=== PATIENT | female | born 1950 | race Two or more races ===

== ENCOUNTER 2017-01-25 16:07 | Emergency (ER) | payer MEDICARE, MEDICAID ==
--- NOTE | 2017-01-25 17:05 | ED Physician Chart ---
Chief Complaint/HPI - Patient Information Date Seen:: 01/25/17 Time Seen:: 16:40 Chief Complaint:: high bp History of Present Illness:: Patient reports that she checked her blood pressure today and it was elevated. The patient also states that she had a occipital headache earlier in the day that it is almost totally resolved without any additional treatment. She denies chest pain, shortness of breath, abdominal pain, visual disturbance, sweating, nausea or vomiting. The patient states that she regularly gets mild headaches, and this one may have been a little worse than usual but she was very "nervous" about her elevated blood pressure at the pharmacy. Patient states she has not missed any doses of her nifedipine which has not been changed in over 2 months by her private physician. Additionally the patient is an insulin-dependent diabetic but states that her blood sugars have been in the 110 region. The patient denies any other significant problems at this time, and has not had any type of prodrome leading up to the elevated blood pressure today. Allergies:: Allergies Allergy/AdvReac Type Severity Reaction Status Date / Time No Known Allergies Allergy Verified 01/25/17 16:10 Vitals:: Vital Signs - 8 hr 01/25/17 01/25/17 16:10 16:44 Temp 97.0 F 97.0 F HR 81 79 RR 16 16 BP 182/87 144/61 O2 Sat % 98 98 Historian:: Patient Review:: Nurse's Note Reviewed Review of Systems - Review of Systems Other: All other review of systems are negative except for those things mentioned in the history of present illness. 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 Patient also has a history of chronic renal insufficiency secondary to diabetes.), Other (chronic renal insufficiency) Family History: Heart disease Surgical History: Appendectomy, Cholecystectomy Psychiatricy History: None Medication: Reviewed Family Medical History - Family Member Mother Ethnicity: Living Status: Hx Family Cancer: No Hx Family Coronary Artery Disease: No Hx Family Congestive Heart Failure: No Hx Family Hypertension: Yes Hx Family Stroke: Yes Hx Family Diabetes: Yes Hx Family Seizures: No Hx Family Dementia: No Hx Family AIDS: No Hx Family HIV: No Hx Family COPD: Yes Hx Family Hepatitis: No Hx Family Psychiatric Problems: No Hx Family Tuberculosis: No Other Medical History: heart attack Physical Exam - Physical Examination Other:: Physical exam: In general the patient is a 66-year-old woman lying quietly on the gurney in no apparent distress. She is an obese female, alert and oriented and is able to carry on a conversation without any apparent abnormality. The patient is ambulatory without any focal deficits, able to sit up and lay down without any change in her mild headache symptoms, and has no readily apparent facial asymmetry. The cranial nerve motor functions are all symmetrical except that the pt has blindness in right eye with corneal opacity. EOMI. The neck is without audible bruit or stridor and has full range of motion. Skin exam is normal without icteric change. Cardiovascular exam is unremarkable. Chest exam is unremarkable with symmetrical breath sounds bilaterally. The patient has full range of motion of her back. The neurological exam is unremarkable for deficits in proprioception, cerebellar function, she has symmetrical 5 over 5 strength in all extremities with intact deep tendon reflexes symmetrically in all extremities. Assessment - Assessment General Assessment: Patient was serially examined with steady improvement of her blood pressure and the last reading was 144/61 with partial resolution of the patient's headache. ED Septic Shock - . Is Septic Shock (SBP<90, OR Lactate>4 mmol\\L) present?: No - <6hrs of presentation: Vital Signs: Vital Signs - 8 hr 01/25/17 01/25/17 16:10 16:44 Temp 97.0 F 97.0 F HR 81 79 RR 16 16 BP 182/87 144/61 O2 Sat % 98 98 Reassessment (Disposition) - Reassessment Reassessment Condition:: Improved - Diagnosis Diagnosis:: 1 hypertension. Improved without specific intervention. 2 mild occipital headache. I do not consider that this patient has a hypertensive emergency nor does she felt the criteria for hypertensive urgency even though she has a mild headache and moderate hypertension. 3 type 1 diabetes. 4 chronic renal insufficiency. 5 right eye blindness. 6 anemia with workup in progress for GI blood loss. - Aftercare/Follow up Instructions Aftercare/Follow-Up Instructions:: Counseled pt regarding lab results/diagnosis & need follow up, Refer to Discharge Instructions - Patient Disposition Discharge/Transfer:: Home ED Discharge Plan - Patient Disposition Admit/Discharge/Transfer: PT DISCHARGED HOME Condition at Disposition: Improved
== END 2017-01-25 17:50 | disposition home or self-care (01) ==
LOC: ER 16:07
DX: E10.22 Type 1 diabetes mellitus with diabetic chronic kidney disease (principal); I12.9 Hypertensive chronic kidney disease with stage 1 through stage 4 chronic kidney disease, or unspecified chronic kidney disease; N18.9 Chronic kidney disease, unspecified; R51 Headache; H54.41 Blindness, right eye, normal vision left eye; D50.0 Iron deficiency anemia secondary to blood loss (chronic); Z90.49 Acquired absence of other specified parts of digestive tract
CPT/HCPCS: Z7610